=== PATIENT | female | born 1965 | race American Indian/Alaskan Native ===

== ENCOUNTER 2016-12-27 10:16 | Day surgery (SDC) | payer BC, OTHER ==
[2016-12-27] MEDS ORDERED: WATER FOR IRRIG STERILE IR ONE (11:11)
[2016-12-27] MEDS ORDERED: WATER FOR IRRIG STERILE ONE (11:11)
--- NOTE | 2016-12-27 11:17 | History and Physical Report ---
History of Present Illness Date of examination: 12/27/16 Date of admission: 12/27/2016 Chief complaint: Colorectal cancer screening History of present illness: Patient is a 51-year-old female who presents for colorectal cancer screening. She also has underlying family history of colorectal cancer. She denies any additional complaints Past History Past Medical History: other (Cushings disease hypertension) Past Surgical History: hysterectomy, Other (ganglion surgery right wrist, ? Salpingo-oophorectomy) Social history: denies: smoking, alcohol abuse Family history: cancer, other (colorectal cancer) Medications and Allergies Allergies Allergy/AdvReac Type Severity Reaction Status Date / Time latex Allergy Unknown Verified 10/25/13 16:57 metronidazole [From Flagyl] Allergy Unknown Verified 10/25/13 16:57 Review of Systems All systems: negative Exam - Constitutional General appearance: Present: no acute distress, well-nourished - EENT Eyes: Present: PERRL ENT: hearing intact, clear oral mucosa - Neck Neck: Present: supple, normal ROM - Respiratory Respiratory effort: normal Respiratory: bilateral: CTA - Cardiovascular Heart Sounds: Present: S1 & S2. Absent: rub, click - Extremities Extremities: pulses symmetrical, No edema Peripheral Pulses: within normal limits - Abdominal General gastrointestinal: Present: soft, non-tender, non-distended, normal bowel sounds Female genitourinary: Present: normal - Integumentary Integumentary: Present: clear, warm, dry - Musculoskeletal Musculoskeletal: gait normal, strength equal bilaterally - Psychiatric Psychiatric: appropriate mood/affect, intact judgment & insight - Neurologic Neurologic: CNII-XII intact, moves all extremities Assessment and Plan Colorectal cancer screening. Plan: Full colonoscopy.
--- NOTE | 2016-12-27 11:19 | Operative Report ---
Operative Report Operative Report: Date of procedure: 12/27/2016 Procedure: Colonoscopy. Attending physician: Selwyn Holliday MD Certified Registered Dental Assistant: Selwyn Holliday MD Indication: Patient is a 51-year-old female who presents for colonoscopy for colorectal cancer screening. Patient also has a family history of colorectal cancer. A colonoscopy serves to evaluate patient so that treatment may be directed based on the findings. Consent: Informed consent was obtained after advising the patient and family regarding nature of this procedure, its indications, potential benefits as well as possible complications including but not limited to bleeding perforation and adverse reaction to medication, infection as well as other cardiopulmonary complications. An informed written and verbal consent was then obtained after due opportunity was provided for questions and answers. Monitoring: Patient was monitored continuously with pulse oximetry and electrocardiographic recordings as well as blood pressure recordings. Vital signs remained stable throughout this procedure with no untoward events. Preoperative assessment: Patient was assessed immediately prior to this procedure for capacity to tolerate monitored anesthesia care and moderate sedation as well as general anesthesia. Patient's ASA classification is 2, Mallampati class is 2, Hyomental distance is 3. Instrument: [employer] video colonoscope Medications: Propofol given intravenously in divided doses. For details please refer to anesthesia records. Description of procedure: Patient was placed in the left lateral decubitus position after achieving sedation, a digital rectal examination was performed following which the colonoscope was introduced into the anal verge and advanced to the cecum which was identified by the ileocecal valve, the appendiceal orifice, as well as by the cecal strap and direct transillumination. The colonoscope was subsequently withdrawn with careful inspection of all mucosal surfaces. Patient tolerated this procedure well and was subsequently taken to the recovery room. The following findings were noted. Findings: The entirety of the colon to the cecum was normal. On the retroflex view at the anal verge, patient had internal hemorrhoids. Impression: Normal colonoscopy. Internal hemorrhoids. Plan: High-fiber diet. Repeat colonoscopy in 5 years due to family history of colorectal cancer.
[2016-12-27] MEDS ORDERED: DIPRIVAN 10 MG/ML IV ONE ×2 (11:32)
[2016-12-27] MEDS ORDERED: NACL 0.9% 1000 ML 1,000 ML IV SCH (12:00)
--- NOTE | 2016-12-27 12:06 | Anesthesia Consultation ---
Anesthesia Consult and Med Hx Date of service: 12/27/16 - Airway Anesthetic Teeth Evaluation: Good, Caps (hanging down but not loose) ROM Head & Neck: Adequate Mental/Hyoid Distance: Adequate Mallampati Class: Class I Intubation Access Assessment: Probably Good - Pulmonary Exam CTA: Yes - Cardiac Exam Cardiac Exam: RRR - Pre-Operative Health Status ASA Pre-Surgery Classification: ASA3 Proposed Anesthetic Plan: MAC - Pulmonary Hx Asthma: Yes Hx Respiratory Symptoms: Yes (bronchitis) Hx Sleep Apnea: Yes - Cardiovascular System Hx Hypertension: Yes Hx Heart Attack/AMI: Yes (minor) Hx Heart Murmur: Yes - Central Nervous System Hx Back Pain: Yes (not on meds, doesnt want to take them) - Other Systems Hx Obesity: Yes - Additional Comments Anesthesia Medical History Comments: had TIA in past. Gets tested occasionally for slurred speach and memory issues
--- NOTE | 2016-12-27 12:06 | Anesthesia Day of Surgery ---
Anesthesia Day of Surgery - Day of Surgery Patient Examined: Yes Patient H&P Reviewed: Yes Patient is NPO: Yes
--- NOTE | 2016-12-27 12:36 | Discharge Summary ---
Short Stay Discharge Plan Activity: advance as tolerated Weight Bearing Status: Weight Bear as Tolerated Diet: regular Follow up with: AYANNA FORTUNE DO [Primary Care Provider] - 7 Days
--- NOTE | 2016-12-27 13:10 | Post Anesthesia Evaluation ---
- Post Anesthesia Evaluation Patient Participated: Yes Airway Patent: Yes Stable Respiratory Function: Yes Nausea/Vomiting: No Temp > 96.8F: Yes Pain Manageable: Yes Adequeate Hydration: Yes Anesthesia Complications: No Block Receding Appropriately: Not Applicable Patient on Ventilator: No
[2016-12-27 14:30] VITALS: BP 162/76
== END 2016-12-27 10:17 | disposition home or self-care (01) ==
LOC: GIO 10:16
PROVIDERS: ATTEND Internal Medicine Gastroenterology
DX: Z12.11 Encounter for screening for malignant neoplasm of colon (principal); K64.8 Other hemorrhoids; E24.9 Cushing's syndrome, unspecified; I10 Essential (primary) hypertension; J45.909 Unspecified asthma, uncomplicated; E66.9 Obesity, unspecified; Z68.42 Body mass index [BMI] 45.0-49.9, adult; Z90.710 Acquired absence of both cervix and uterus; Z98.890 Other specified postprocedural states; Z88.1 Allergy status to other antibiotic agents; Z91.040 Latex allergy status; Z86.73 Personal history of transient ischemic attack (TIA), and cerebral infarction without residual deficits; Z80.0 Family history of malignant neoplasm of digestive organs
CPT/HCPCS: 45378; J2704